=== PATIENT | male | born 1970 | race Hispanic/Latino ===

== ENCOUNTER 2017-12-16 08:25 | Day surgery (SDC) | payer MEDICAID ==
[2017-12-13 11:04] VITALS: BMI 29.6
[2017-12-16 09:09] VITALS: RESP 18
[2017-12-16 09:15] LABS: BASO % 1.2 % (0.0-2.0); EOS # 0.2 K/uL (0.0-0.7); EOS % 4.5 % (0.0-4.0); HEMOGLOBIN 14.7 g/dL (12.0-18.0); LYMPH # 0.9 K/uL (1.0-4.3); LYMPH % 23.3 % (20.0-40.0); MEAN CELL VOLUME 87.7 fl (80.0-94.0); MEAN CORPUSCULAR HGB CONC 34.2 g/dL (33.0-37.0); MEAN PLATELET VOLUME 8.2 fl (7.2-11.7); MONO # 0.4 K/uL (0.0-0.8); MONO % 11.3 % (0.0-10.0); NEUT # 2.4 K/uL (1.8-7.0); NEUT % 59.7 % (50.0-75.0); NRBC % 0.1 % (0.0-0.0); RBC 4.88 Mil/uL (4.40-5.90); RED CELL DISTRIBUTION WIDTH 13.9 % (11.5-14.5)
[2017-12-16] MEDS ORDERED: Bupivacaine 0.5% Inj(30mL) IJ ONE (09:20)
[2017-12-16] MEDS ORDERED: Lidocaine 2% Inj (20ml) IJ ONE (09:20)
[2017-12-16] MEDS ORDERED: ceFAZolin 1 GM in Sodium Chloride 0.9% 100 ML IVPB ONE (09:20)
--- NOTE | 2017-12-16 09:24 | CP.SDSHP ---
Same Day Surgery H & P - History Proposed Procedure: Left foot fasciectomy Pre-Op Diagnosis: Left plantar fasciitis - Previous Medical/Surgical History Pain: 4.Moderate Pain - Allergies Allergies: Allergies No Known Allergies Allergy (Verified 12/16/17 08:40) - Physical Exam Vital Signs: Vital Signs 12/16/17 12/16/17 09:07 09:11 Temperature 97.2 F L Pulse Rate 54 L 54 L Respiratory 18 Rate Blood Pressure 116/73 O2 Sat by Pulse 98 Oximetry Mental Status: Alert & Oriented x3 - Impression Pt. Evaluated Today:Candidate for Anesthesia & Procedure: Yes - Date & Time Date: 12/16/17 Short Stay Discharge - Short Stay Discharge Admitting Diagnosis/Reason for Visit: M72.2 Disposition: HOME/ ROUTINE Referrals: Chandana Hudson DPM [Primary Care Provider] - Additional Instructions (Diet, Activity): -Patient in good/stable condition for discharge home -Pt to resume medications per medical reconciliation -Resume regular diet Please keep dressing clean, dry, & intact to surgical site -Use plastic bag over bandage for showering -Wear post op shoe at all times when ambulating -Call clinic if you see signs of infection (redness, swelling, malodor) -Please make an appointment to see Dr. Hudson in office/clinic within 1 week for post-op check Progress Note/Discharge Note with Instructions: - Patient evaluated bedside in recovery s/p surgical procedure. - After surgical procedure patient in NAD - (+) Void, (+) Appetite - Capillary refill time <3s and NVSI intact. - Patient denies complaints at this time - Post operative instructions and plan of care explained to patient at length. - Pt. acknowledges understanding. - Patient stable for DC per podiatric surgery
--- NOTE | 2017-12-16 09:27 | CP.PCM.PN ---
Subjective - Date & Time of Evaluation Date of Evaluation: 12/16/17 Time of Evaluation: 09:24 - Subjective Subjective: Podiatry Progress Note for Dr. Hudson: 47 yo male patient seen and evaluated for left foot procedure. Patient states that he has been experiencing plantar fasciitis pain for over a year. He has exhausted all conservative measures including ice, rest, corticosteroid injections, and stretching exercises. Patient rates his pain as worse first thing in the morning and is worse after standing on it all day. Patient states he was NPO since 10pm last night and denies eating or drinking any fluids. Patient is fully aware why he is going to the operating room with Dr. Champion. Patients and daughter are present bedside. Patient has had an ACL surgery in the past and denies any reaction to anesthesia. Denies N/V/F/SOB/CP. PMHx: denies PSH: ACL surgery ALL: denies Objective - Vital Signs/Intake and Output Vital Signs (last 24 hours): Temp Pulse Resp BP Pulse Ox 97.2 F L 54 L 18 116/73 98 12/16/17 09:07 12/16/17 09:11 12/16/17 09:07 12/16/17 09:07 12/16/17 09:07 - Medications Medications: Current Medications Bupivacaine HCl (Marcaine 0.5%) 20 ml IJ ONCE ONE Stop: 12/16/17 09:21 Cefazolin Sodium 1 gm/ Sodium (Chloride) 100 mls @ 100 mls/hr IVPB ONCE ONE PRN Reason: Protocol Stop: 12/16/17 10:19 Sodium Chloride (Sodium Chloride 0.9%) 1,000 mls @ 0 mls/hr IV .Q0M JAZMÍN PRN Reason: Per Protocol Stop: 12/17/17 09:20 Lidocaine HCl (Lidocaine 2% 20ml Vial) 20 ml IJ ONCE ONE Stop: 12/16/17 09:21 - Labs Labs: 12/16/17 09:09 - Constitutional Appears: Well, Non-toxic, No Acute Distress - Head Exam Head Exam: ATRAUMATIC, NORMOCEPHALIC - Extremities Exam Additional comments: Vascular: DP/PT 2/4, CFT <3 seconds to all 10 digits, TG WNL, no edema noted to b/l lower extremities Ortho: Pain upon palpation to medial plantar tubercle on the left. MMT 5/5 b/l. Active and passive range of motion with dorsiflexion, plantarflexion, inversion , and eversion WNL Neuro: Gross and protective sensation intact Derm: No open lesions, no erythema, no ecchymosis, no clinical signs of infection - Neurological Exam Neurological Exam: Alert, Awake, Oriented x3 Assessment and Plan - Assessment and Plan (Free Text) Assessment: 47 yo male patient seen and evaluated for left foot procedure. Plan: Pt was seen and examined in SDS Pt NPO status was confirmed All pre-op testing and clearance in chart Pt has exhausted all conservative treatment at this time and is opting for surgical intervention Pt was explained procedure and post-operative course All pt's questions were answered to satisfaction No guarantees were made Pt understands all risks, benefits and complications of procedure Pt will follow-up with Dr. Hudson within 1 week of surgery
[2017-12-16] MEDS ORDERED: Sodium Chloride 0.9% 1,000 ML IV SCH (09:30)
[2017-12-16] MEDS ORDERED: ceFAZolin IV 2 gm in Dextrose 0 GM/0 ML BAG IVPB ONE (10:39)
[2017-12-16] MEDS ORDERED: Lidocaine 2% MPF (5 ml) Inj ONE (10:39)
[2017-12-16] MEDS ORDERED: Bupivacaine HCl 0.25% PF (30 ml) Inj ONE (10:40)
[2017-12-16] MEDS ORDERED: Midazolam 2 MG/2 ML VIAL ONE (10:44)
[2017-12-16] MEDS ORDERED: Propofol 10 mg/ml Inj (20 ML) ONE (10:44)
[2017-12-16] MEDS ORDERED: ePHEDrine 50 mg/ml Inj ONE (11:30)
[2017-12-16] MEDS ORDERED: Lactated Ringer's 1,000 ML IV ONE (11:36)
[2017-12-16] MEDS ORDERED: Oxycodone/Acetaminophen 5/325 mg Tab PO PRN ×2 (11:47→11:49)
[2017-12-16] MEDS ORDERED: HYDROmorphone 0.5 mg/0.5 ml ISec IVP PRN (11:49)
--- NOTE | 2017-12-16 11:53 | PCM.SURG1 ---
Surgeon's Initial Post Op Note - Surgeon's Notes Surgeon: Dr. Hudson,DPM End User Consultant: Dr. Roberts PGY1 and Dr. Gamez PGY2 Type of Anesthesia: General LMA Anesthesia Administered By: Dr. Villasenor Pre-Operative Diagnosis: Left plantar fasciitis Operative Findings: see dictation. M: 4-0 prolene. I: 13 cc 1:1 mix of 2% lidocaine plain and 0.25% marcaine plain Post-Operative Diagnosis: same Operation Performed: Left foot plantar fasciotomy Specimen/Specimens Removed: none Estimated Blood Loss: EBL {In ML}: 1 Blood Products Given: N/A Drains Used: No Drains Post-Op Condition: Good Date of Surgery/Procedure: 12/16/17 Time of Surgery/Procedure: 11:52
[2017-12-16 16:24] VITALS: BP 131/78; PULSE 65; TEMP 97.5; O2SAT 99
--- NOTE | 2017-12-21 22:03 | OP ---
Copied To: KAT FIELDS Attending MD: Chandana Hudson DPM PROCEDURE DATE: 12/16/2017 SURGEON: Chandana Hudson DPM ASSISTANTS: Dr. Fields, PGY-[address] Gamez, PGY-2. ANESTHESIOLOGIST: Mayra Villasenor MD ANESTHESIA: General LMA. PREOPERATIVE DIAGNOSIS: Left foot plantar fascitis. POSTOPERATIVE DIAGNOSIS: Left foot plantar fascitis. NAME OF PROCEDURE: Left foot plantar fasciotomy. INDICATIONS: The patient is a 47-year-old male with the above diagnoses. The patient has exhausted all the conservative treatment at this time and now requires surgical intervention. The patient signed a consent after careful explanation of risks, benefits, complications, and alternatives for surgical procedure. No guarantees were given nor implied. N.p.o. status was confirmed prior to taking the patient to the OR. PREPARATION: The patient was brought in to the operating room and placed on the operating room table in a supine position. Time-out was performed for identification of the correct patient and procedure. After induction of general sedation and injection of 13 mL of local anesthesia, the left lower extremity was then prepped and draped in normal sterile manner and the procedure began. No tourniquet was used during the procedure. DESCRIPTION OF PROCEDURE: Attention was directed to the plantar aspect of the left foot where under C-arm guidance, location of the medial calcaneal tubercle was identified. A 1-cm linear longitudinal incision was made in the medial aspect of the patient's left heel using a #10 blade. The incision was deepened through the subcutaneous tissues and incision was carried down to the level of the tubercle and plantar fascial band. Through motion of the #10 blade, the medial band of the plantar fascia was released and it was confirmed by using hemostat to feel for any remaining fibers. The wound was then flushed with copious amounts of sterile normal saline. The skin was reapproximated and coapted utilizing 4-0 Prolene in a simple suture technique. POSTOPERATIVE CONDITION: The patient tolerated the anesthesia and procedure well and was escorted to the recovery room with vital signs stable and neurovascular status intact to the left leg. Patient will follow up with Dr. Hudson in his office. KAT DONNIE Chandana Hudson DPM [facility] # [id number]
== END 2017-12-16 16:20 | disposition home or self-care (01) ==
LOC: H.OPSURG 08:25
PROVIDERS: ATTEND Podiatrist Foot & Ankle Surgery
DX: M72.2 Plantar fascial fibromatosis (principal)
CPT/HCPCS: 28008; 36415; 85025; 97161; G8978; G8979; G8980; J0690; J2001; J2250; J2704; J3010; J7030; J7120